=== PATIENT | female | born 1990 | race Caucasian/White ===

== ENCOUNTER → 2018-10-20 | Emergency (ER) | payer OTHER | END | disposition left against medical advice (07) | LOC: ER 12:18 | DX: Z53.21 Procedure and treatment not carried out due to patient leaving prior to being seen by health care provider (principal) ==

== ENCOUNTER → 2020-08-26 | Outpatient (CLI) | payer OTHER | END | disposition home or self-care (01) | LOC: PRENATAL 13:00 | PROVIDERS: ATTEND Obstetrics & Gynecology Maternal & Fetal Medicine | DX: O35.3XX1 Maternal care for (suspected) damage to fetus from viral disease in mother, fetus 1 (principal); O35.0XX1 Maternal care for (suspected) central nervous system malformation in fetus, fetus 1; O98.512 Other viral diseases complicating pregnancy, second trimester; Z36.89 Encounter for other specified antenatal screening; Z3A.19 19 weeks gestation of pregnancy ==

== ENCOUNTER 2020-11-25 13:10 | Inpatient (IN) | payer OTHER ==
[~2020-11-25] VITALS: Ht 185.4 cm; Wt 119.3 kg
[2020-11-25] MEDS ORDERED: PRENATAL TABLE1 EAC1 PO (13:31)
[2020-12-25] MEDS ORDERED: NAPR500T14 PO (08:49)
== END 2020-12-25 11:26 | disposition home or self-care (01) | DRG 807 ==
LOC: LDR 13:10 → OB/GYN 11-26 13:36
PROVIDERS: ADMIT Obstetrics & Gynecology; ATTEND Obstetrics & Gynecology
PROC: 10E0XZZ Delivery of Products of Conception, External Approach (ICD-10-PCS; principal; 2020-11-25)
PROC: 0KQM0ZZ Repair Perineum Muscle, Open Approach (ICD-10-PCS; 2020-11-25)
PROC: 3E033VJ Introduction of Other Hormone into Peripheral Vein, Percutaneous Approach (ICD-10-PCS; 2020-11-25)
PROC: 4A1HXFZ Monitoring of Products of Conception, Cardiac Rhythm, External Approach (ICD-10-PCS; 2020-11-25)
DX: O14.04 Mild to moderate pre-eclampsia, complicating childbirth (principal); Z37.0 Single live birth; O70.1 Second degree perineal laceration during delivery; O13.4 Gestational [pregnancy-induced] hypertension without significant proteinuria, complicating childbirth; O36.63X0 Maternal care for excessive fetal growth, third trimester, not applicable or unspecified; Z3A.32 32 weeks gestation of pregnancy; Z20.822 Contact with and (suspected) exposure to COVID-19

== ENCOUNTER 2023-03-19 09:06 | Emergency (ER) | payer OTHER ==
[~2023-03-19] VITALS: Ht 182.9 cm; Wt 131.5 kg
[~2023-03-19 09:06] MED LIST: NAPR500T14 PO; PRENATAL TABLE1 EAC1 PO
[2023-03-19] MEDS ORDERED: AMOXICILLIN500 M1 PO (12:00)
[2023-03-19] MEDS ORDERED: BENZONATATE200 M1 PO (12:00)
== END 2023-03-19 12:14 | disposition home or self-care (01) ==
LOC: ER 09:06
DX: J06.9 Acute upper respiratory infection, unspecified (principal); Z20.822 Contact with and (suspected) exposure to COVID-19

== ENCOUNTER 2023-05-14 11:46 | Emergency (ER) | payer OTHER ==
[~2023-05-14] VITALS: Ht 182.9 cm; Wt 113.4 kg
[~2023-05-14 11:46] MED LIST changes: +AMOXICILLIN500 M1 PO; +BENZONATATE200 M1 PO
== END 2023-05-14 18:04 | disposition home or self-care (01) ==
LOC: ER 11:46
DX: J06.9 Acute upper respiratory infection, unspecified (principal); Z20.822 Contact with and (suspected) exposure to COVID-19; Z88.8 Allergy status to other drugs, medicaments and biological substances

== ENCOUNTER 2023-05-20 10:35 | Emergency (ER) | payer OTHER ==
[~2023-05-20] VITALS: Ht 182.9 cm; Wt 113.4 kg
[2023-05-20] MEDS ORDERED: NORFLEX100MG PO (13:30)
[2023-05-20] MEDS ORDERED: ZITHROMAX500 MG PO (13:30)
[2023-05-20] MEDS ORDERED: DICLOFENAC POTA50 MG PO (13:30)
[2023-05-20] MEDS ORDERED: MEDROLPACK PO (13:30)
[2023-05-20] MEDS ORDERED: ALBUTEROL1.25 MG/3 IH (13:30)
== END 2023-05-20 14:35 | disposition home or self-care (01) ==
LOC: ER 10:35
DX: J39.9 Disease of upper respiratory tract, unspecified (principal); R07.89 Other chest pain

== ENCOUNTER 2023-09-10 14:38 | Emergency (ER) | payer OTHER ==
[~2023-09-10] VITALS: Ht 188 cm; Wt 85.3 kg
[~2023-09-10 14:38] MED LIST changes: +ALBUTEROL1.25 MG/3 IH; +DICLOFENAC POTA50 MG PO; +MEDROLPACK PO; +NORFLEX100MG PO; +ZITHROMAX500 MG PO
[2023-09-10 19:01] LABS: MEAN CELL VOLUME 85.8 fL (80.00-100.00); MEAN CORPUSCULAR HEMOGLOBIN 27.9 pg (27.00-32.0); MEAN CORPUSCULAR HGB CONC 32.6 g/dl (32.0-36.0); PLATELET COUNT 273 K/uL (150-450); RED BLOOD COUNT 4.66 M/uL (4.00-6.00); RED CELL DISTRIBUTION WIDTH 13.6 % (11.5-14.5)
[2023-09-10 20:25] LABS: CREATININE SERUM 0.96 mg/dL (0.55-1.02); GFR 67.35; POTASSIUM 3.84 mEq/L (3.5-5.1)
== END 2023-09-10 20:58 | disposition home or self-care (01) ==
LOC: ER 14:38
PROVIDERS: General Practice
DX: S29.011A Strain of muscle and tendon of front wall of thorax, initial encounter (principal); X58.XXXA Exposure to other specified factors, initial encounter; Y93.9 Activity, unspecified; Y92.9 Unspecified place or not applicable; Y99.9 Unspecified external cause status; Z88.8 Allergy status to other drugs, medicaments and biological substances